=== PATIENT | male | born 1955 | race Caucasian/White ===

== ENCOUNTER 2020-05-20 15:16 | Outpatient (CLI) | payer MEDICARE, OTHER, SELFPAY ==
--- NOTE | ~2020-05-20 | MR_ITS ---
EXAMINATION: MR abdomen wo/w con DATE: 05/20/2020 16:44 INDICATION: Benign neoplasm of the left adrenal gland. TECHNIQUE: Magnetic resonance imaging (MRI) of the abdomen was performed without and with 17 mL Multi cecelia intravenous contrast. Sequences included coronal and axial T2-weighted SS-FSE, axial FS 2D-FIES TA, coronal and axial dual-echo T1-weighted FSPGR, axial T1-weighted LAVA, and axial STIR FSE. Postco ntrast axial T1-weighted LAVA images were obtained in a time course. Postcontrast coronal T1-weighted LAVA images were obtained. COMPARISON: CT dated 07/31/2019 and MRI dated 01/07/2019 FINDINGS: Heart size is normal. No pericardial or pleural effusion. Tortuous thoracic aorta. Diffuse hepatic st eatosis. No significant interval change in a 2-3 mm cystic lesion at the tail of the otherwise normal -appearing pancreas Gallbladder, spleen and right adrenal gland are normal. 2.3 cm left adrenal nodul e with significant signal dropout on opposed phase imaging consistent with intracellular lipid-contai lula adenoma. Bilateral 9 mm T2 hyperintense nonenhancing renal cysts. Incidentally noted normal vari ant circumaortic left renal veins. Visualized portions of the bowels including the appendix are unrem arkable. No pathologically enlarged abdominal lymphadenopathy. Mild to moderate lumbar spondylosis. N ormal bone marrow signal. IMPRESSION: 1. 2.3 cm left adrenal adenoma. 2. Diffuse hepatic steatosis. 3. Unchanged 2-3 mm cystic lesion at the tail of the pancreas. Recommend continued annual MRI follow- up. Reviewed, dictated and finalized at location A. IMPRESSION: 1. 2.3 cm left adrenal adenoma. 2. Diffuse hepatic steatosis. 3. Unchanged 2-3 mm cystic lesion at the tail of the pancreas. Recommend contin ued annual MRI follow-up.
[2020-05-20 16:05] LABS: Estimated Glomerular Filt Rate > 60
== END 2020-05-20 15:17 | disposition home or self-care (01) ==
PROVIDERS: PCP Internal Medicine; Visit Provider Surgery
DX: D35.00 Benign neoplasm of unspecified adrenal gland (principal); K86.2 Cyst of pancreas; K76.0 Fatty (change of) liver, not elsewhere classified
CPT/HCPCS: 74183; A9577

== ENCOUNTER → 2021-03-17 07:33 | Outpatient (CLI) | payer MEDICARE, OTHER, SELFPAY ==
--- NOTE | ~2021-03-17 | MR_ITS ---
EXAMINATION: MR shoulder LT wo con DATE: 03/17/2021 08:27 INDICATION: Left shoulder pain TECHNIQUE: Magnetic resonance imaging (MRI) of the left shoulder was performed without intravenous co ntrast. Sequences included axial PD-weighted FS FSE, coronal oblique PD-weighted FS FSE, coronal obli que T2-weighted FS FSE, sagittal PD-weighted FS FSE, and sagittal T1-weighted SE. COMPARISON: None. FINDINGS: Coracoacromial arch: The acromion undersurface is minimally curved in morphology (type I-II). The coracoacromial ligament is normal. Mild acromioclavicular osteoarthritis. Rotator cuff: Mild subscapularis, supraspinatus and infraspinatus tendinopathy, all without discrete tear. The alton s minor tendon is normal. Normal rotator cuff muscle bulk and signal. Biceps tendon, glenoid labrum and glenohumeral cartilage: Mild tendinopathy of the intra-articular portion of the long head biceps tendon without discrete tear . There is a large osteophyte underlying the extra articular portion of the biceps tendon along the f afshan of the intertubercular groove. Severe glenohumeral osteoarthritis with large regions of full/alberto r full-thickness cartilage loss along the glenoid and humeral head with scattered underlying subartic ular edema and cystic change. Large marginal osteophytes along the inferior aspect of the humeral hea d. Diffuse degenerative tearing of the glenoid labrum. Fluid: Small glenohumeral joint effusion with associated mild synovitis in the posterior recess of the joint space. There is proportional small amount of fluid extending along the long head biceps tendon sheat h. No loose osteochondral bodies. No abnormally increased fluid signal in the subacromial/subdeltoid bursa to suggest bursitis. Bones: Bone alignment is normal. No fracture or pathologic marrow replacing process. Right side IMPRESSION: 1. Severe left glenohumeral osteoarthritis with diffuse degenerative tearing of the glenoid labrum. 2. Mild rotator cuff tendinopathy without discrete tear. 3. Mild acromioclavicular osteoarthritis. 4. Mild tendinopathy without discrete tear of the intra-articular long head biceps tendon. Reviewed, dictated and finalized at location A. IMPRESSION: 1. Severe left glenohumeral osteoarthritis with diffuse degenerative tearing of the glenoid labrum. 2. Mild rotator cuff tendinopathy without discrete tear. 3. Mild acromioclavicular osteoarthritis. 4. Mild tendinopathy without discrete tear of the intra-articular long head bic eps tendon.
== END ==
PROVIDERS: PCP Internal Medicine; Visit Provider Internal Medicine
DX: M19.012 Primary osteoarthritis, left shoulder (principal)
CPT/HCPCS: 73221

== ENCOUNTER 2021-05-29 06:53 | Outpatient (CLI) | payer MEDICARE, OTHER, SELFPAY ==
--- NOTE | ~2021-05-29 | MR_ITS ---
EXAMINATION: MR abdomen wo/w con DATE: 05/29/2021 08:00 INDICATION: Cyst of pancreas. TECHNIQUE: Magnetic resonance imaging (MRI) of the abdomen was performed without and with 17 mL Multi King intravenous contrast. Sequences included coronal T2-weighted FS FSE, coronal and axial FS FIEST A, axial T2-weighted FSE, coronal LAVA-flex, axial STIR FSE, axial DWI, axial dual-echo T1-weighted F SPGR, and axial LAVA. Postcontrast sequences included coronal LAVA-flex and a time course of axial LA VA. COMPARISON: Abdomen MRI 05/20/2020, 01/07/2019 FINDINGS: There is diffuse hepatic steatosis. The gallbladder and spleen are normal. There is a 3 mm cystic les ion in the tail of the pancreas without visible communication with the main pancreatic duct. Right ad renal gland is normal. There is a 2.2 cm mass in left adrenal gland containing microscopic fat, consi stent with an adenoma. There are cysts in the kidneys measuring up to 11 mm on the right. There are n o dilated loops of bowel. There are no pathologically enlarged lymph nodes. There is no free intraper itoneal fluid. IMPRESSION: 1. 3 mm cystic lesion of the pancreas, stable from 01/07/19. The differential diagnosis includes pseu docyst, intraductal papillary mucinous neoplasm (IPMN), mucinous cystic neoplasm (MCN), serous cystad enoma, and neuroendocrine tumor. Consider abdomen MRI without and with contrast in 2 years. Reviewed, dictated and finalized at location A. IMPRESSION: 1. 3 mm cystic lesion of the pancreas, stable from 01/07/19. The differential d iagnosis includes pseudocyst, intraductal papillary mucinous neoplasm (IPMN), m ucinous cystic neoplasm (MCN), serous cystadenoma, and neuroendocrine tumor. Co nsider abdomen MRI without and with contrast in 2 years.
[2021-05-29 07:24] LABS: Estimated Glomerular Filt Rate > 60
== END 2021-05-29 06:54 | disposition home or self-care (01) ==
LOC: ANHIMG 06:58
PROVIDERS: PCP Internal Medicine; Visit Provider Surgery
DX: K86.2 Cyst of pancreas (principal)
CPT/HCPCS: 74183; A9577

== ENCOUNTER → 2022-10-16 10:42 | Outpatient (CLI) | payer MEDICARE, OTHER, SELFPAY ==
--- NOTE | ~2022-10-16 | US_ITS ---
US thyroid INDICATION: Nontoxic thyroid nodule by examination TECHNIQUE: Real-time sonographic images of the thyroid gland were obtained. COMPARISON: No prior studies for comparison. FINDINGS: The right thyroid lobe measures 5.6 x 1.3 x 2.2 cm. The left thyroid lobe measures 4.9 x 1 .1 x 1.5 cm. There is normal echotexture and echogenicity throughout the thyroid gland. No discrete n odules identified. Normal vascular flow is present. IMPRESSION: 1. Normal thyroid without discrete nodule or abnormal vascularity. Reviewed, dictated and finalized at location L. AL THERAPIST
== END ==
PROVIDERS: PCP Family Medicine; Visit Provider Family Medicine
DX: E04.1 Nontoxic single thyroid nodule (principal)
CPT/HCPCS: 76536

== ENCOUNTER 2023-06-26 08:11 | Outpatient (CLI) | payer MEDICARE, OTHER, SELFPAY ==
--- NOTE | ~2023-06-26 | MR_ITS ---
EXAMINATION: MR MRCP wo/w con/w 3D wo ind DATE: 06/26/2023 09:33 INDICATION: Pancreatic cyst TECHNIQUE: Magnetic resonance imaging (MRI) of the abdomen was performed without and with intravenous contrast. Sequences included coronal T2-weighted SS-FSE ARC, coronal T2-weighted FS SS-FSE, coronal T2-weighted 2D FS FIESTA, Water:Coronal LAVA-Flex, sagittal T2-weighted SS-FSE ARC, axial SSFSE ARC, axial 3D DualEcho, axial DWI B=600, axial T1-weighted LAVA, FAT:Coronal LAVA-Flex, and coronal in and opposed phase LAVA-Flex. Thick-slab T2-weighted FRFSE-XL images were obtained for magnetic resonance cholangiopancreatography (MRCP). Maximum intensity projection 3-D reconstructions of the volumetric data were created by the technologist. Postcontrast sequences included a time course of axial T1-weig hted LAVA, FAT:Coronal LAVA-Flex, coronal in and opposed phase LAVA-Flex, and Water:Coronal LAVA-Flex . COMPARISON: 05/29/2021, 05/20/2020, 01/07/2019 CONTRAST: Multihance, 16 cc FINDINGS: ABDOMEN MRI: There is loss of hepatic parenchymal signal on opposed phase imaging, consistent with he patic steatosis. The spleen, gallbladder, and right adrenal gland are normal. There is a stable 2 cm adenoma of the left adrenal gland. Cysts of the kidneys measure up to 12 mm on the right. There are n o pathologically enlarged abdominal lymph nodes. There is a 6 mm cystic lesion in the body of the norman creas with apparent communication with the main pancreatic duct. There is a 3 mm cystic lesion in the tail of the pancreas. There are no dilated loops of bowel. No abnormal enhancement is present after contrast administration. ABDOMEN MRCP: There is no intrahepatic or extrahepatic biliary dilatation. The pancreatic duct is nor mal in course and caliber. The 6 mm lesion of the pancreatic body appears to communicate with the miguel n pancreatic duct. IMPRESSION: 1. Cystic lesions of the pancreatic body and tail as detailed above with differential as previously d escribed. Follow-up MRI without and with contrast in two years is recommended. Reviewed, dictated and finalized at location B. LOADER IMPRESSION: 1. Cystic lesions of the pancreatic body and tail as detailed above with differ ential as previously described. Follow-up MRI without and with contrast in two years is recommended.
== END 2023-06-26 08:12 | disposition home or self-care (01) ==
PROVIDERS: PCP Family Medicine; Visit Provider Surgery
DX: K86.2 Cyst of pancreas (principal); D35.02 Benign neoplasm of left adrenal gland; Q61.02 Congenital multiple renal cysts
CPT/HCPCS: 74183; 76376; A9577

== ENCOUNTER 2024-08-14 08:51 | Outpatient (CLI) | payer MEDICARE, OTHER, SELFPAY ==
--- NOTE | ~2024-08-14 | MR_ITS ---
EXAMINATION: MR MRCP wo/w con/w 3D wo ind DATE: 08/14/2024 10:09 INDICATION: Pancreatic cysts TECHNIQUE: Magnetic resonance imaging (MRI) of the abdomen was performed without intravenous contrast . Sequences included coronal T2-weighted FS FSE, coronal T2-weighted FSE, axial T1-weighted LAVA, cor onal FS FIESTA, axial dual-echo T1-weighted SPGR, coronal lava-FLEX, sagittal T2-weighted FSE, axial T2-weighted FSE, and axial DWI. Thick-slab T2-weighted FSE images were obtained for magnetic resonanc e cholangiopancreatography (MRCP). Maximum intensity projection 3-D reconstructions of the volumetric data were created by the technologist. Postcontrast sequences included coronal LAVA-flex and time co urse of axial T1-weighted LAVA. COMPARISON: 06/26/2023 FINDINGS: ABDOMEN MRI: Findings consistent with fatty infiltration of the liver is present. No discrete lesions are identified within the hepatic parenchyma. The spleen, gallbladder, and right adrenal gland are unremarkable. Redemonstration of a left adrenal gland adenoma measuring approximately 2 cm, unchanged. Redemonstration of 2 areas of increased T2 signal intensity within the pancreas. The first measuring 5.4 mm located within the body of the pancreas. The second measuring 3 mm, located within the peripheral most tail of the pancreas. Redemonstration of multiple nonenhancing areas of increased T2 signal intensity within the bilateral kidneys, unchanged from prior. ABDOMEN MRCP: Both of the cyst within the pancreatic body as well as the smaller cyst within the tail of the pancreas demonstrate communication with the main pancreatic duct. IMPRESSION: Redemonstration of cystic lesions within both the body and tail of the pancreas, unchanged in size an d morphology from prior. Differential diagnosis is unchanged. Continued follow-up is recommended Reviewed, dictated and finalized at location A. OARD TECHNICIAN IMPRESSION: Redemonstration of cystic lesions within both the body and tail of the pancreas , unchanged in size and morphology from prior. Differential diagnosis is unchan ged. Continued follow-up is recommended
== END 2024-08-14 08:52 | disposition home or self-care (01) ==
PROVIDERS: PCP Physician Assistant Medical; Visit Provider Surgery
DX: K86.2 Cyst of pancreas (principal)
CPT/HCPCS: 74183; 76376; A9577